=== PATIENT | female | born 1935 | race Two or more races ===

== ENCOUNTER 2022-02-16 14:42 | Inpatient (IN) | payer OTHER ==
[~2022-02-16] VITALS: Ht 149.9 cm; Wt 39.9 kg
== END 2022-02-25 19:28 | disposition home or self-care (01) | DRG 392 ==
LOC: ER 14:42 → MEDJ 02-17 09:49
PROVIDERS: ADMIT Internal Medicine; ATTEND Internal Medicine
PROC: 4A12X4Z Monitoring of Cardiac Electrical Activity, External Approach (ICD-10-PCS; 2022-02-17)
PROC: 02HV33Z Insertion of Infusion Device into Superior Vena Cava, Percutaneous Approach (ICD-10-PCS; 2022-02-18)
PROC: 0DD58ZX Extraction of Esophagus, Via Natural or Artificial Opening Endoscopic, Diagnostic (ICD-10-PCS; principal; 2022-02-19)
PROC: 3E0436Z Introduction of Nutritional Substance into Central Vein, Percutaneous Approach (ICD-10-PCS; 2022-02-20)
PROC: 3E0G8GC Introduction of Other Therapeutic Substance into Upper GI, Via Natural or Artificial Opening Endoscopic (ICD-10-PCS; 2022-02-22)
PROC: 0DJ08ZZ Inspection of Upper Intestinal Tract, Via Natural or Artificial Opening Endoscopic (ICD-10-PCS; 2022-02-22)
DX: K22.0 Achalasia of cardia (principal); Z68.1 Body mass index [BMI] 19.9 or less, adult; R13.19 Other dysphagia; E86.0 Dehydration; K44.9 Diaphragmatic hernia without obstruction or gangrene; K31.89 Other diseases of stomach and duodenum